=== PATIENT | female | born 2000 | race Hispanic/Latino ===

== ENCOUNTER 2024-08-03 10:13 | Inpatient (IN) | payer MEDICAID, OTHER, SELFPAY ==
[2024-07-31 13:09] LABS: Hematocrit 37.4 % (34.9-44.5); Hemoglobin 12.2 g/dL (12.0-15.5); Platelet Count 293 10x3/uL (150-450)
[2024-07-31 13:45] LABS: Syphilis Antibody Nonreactive (Nonreactive); Syphilis Antibody Index 0.12 S/CO (<1.00 Non-Reactive)
[2024-07-31 13:48] LABS: HBsAg Index 0.42 S/CO (0-0.99); HIV (1/2) Antibody/Antigen Non-Reactive (NonReactive); HIV 1/2 INDEX 0.16 S/CO (<1.00); Hep B Surf Ag Non-Reactive S/CO (NonReactive)
[2024-08-03] MEDS: Lactated Ringer's 1,000 ML IV SCH (10:50)
[2024-08-03] MEDS ORDERED: Bicitra 30 ML UDCUP PO PRN (11:12)
[2024-08-03] MEDS ORDERED: Tranexamic Acid 1,000 MG/10 ML VIAL IVP PRN (11:12)
[2024-08-03] MEDS ORDERED: Methylergonovine 0.2 MG/ML VIAL IM PRN (11:12)
[2024-08-03] MEDS ORDERED: Ondansetron PF 4 MG/2 ML Vial IVP PRN ×4 (11:12→20:51)
[2024-08-03] MEDS ORDERED: Oxytocin 30 units/NS 500 ML 500 ML IV SCH (11:12)
[2024-08-03] MEDS ORDERED: Carboprost 250 MCG/ML AMP IM PRN (11:12)
[2024-08-03] MEDS ORDERED: Misoprostol 200 MCG TAB PR PRN (11:12)
[2024-08-03] MEDS ORDERED: Promethazine HCl 25 MG/ML VIAL IM PRN ×3 (11:12→20:51)
[2024-08-03] MEDS ORDERED: hydrALAZINE 20 MG/ML VIAL SLOW IVP PRN ×2 (11:12→20:51)
[2024-08-03] MEDS ORDERED: Diphenoxylate HCl/Atropine Tablet PO PRN (11:12)
[2024-08-03 11:31] VITALS: BMI 32.5
[2024-08-03] MEDS ORDERED: Moisturizing Cream (Eucerin) 113 GM JAR TOP PRN (11:36)
[2024-08-03] MEDS ORDERED: fentaNYL 50 mcg/mL 1 mL Vial SLOW IVP PRN (11:36)
[2024-08-03] MEDS ORDERED: Naloxone HCl 0.4 mg/ml Vial IV PRN (11:36)
[2024-08-03] MEDS ORDERED: diphenhydrAMINE 50 MG/ML VIAL IVP PRN (11:36)
[2024-08-03] MEDS ORDERED: Naloxone HCl 0.4 mg/ml Vial IVP PRN ×2 (11:36)
[2024-08-03] MEDS ORDERED: Meperidine HCl/PF 25 MG (1 mL) VIAL SLOW IVP PRN (11:36)
[2024-08-03] MEDS ORDERED: Ketorolac Tromethamine 30 MG (1 mL) VIAL IVP PRN (11:36)
[2024-08-03] MEDS ORDERED: Communication Order-Pharmacy FS SCH (11:45)
[2024-08-03] MEDS: Famotidine/PF 20 mg/2ml Vial SLOW IVP PRN (11:59)
[2024-08-03] MEDS: CEFAZOLIN 2 GM in Sodium Chloride 0.9% 100 ML IVPB SCH (11:59)
[2024-08-03] MEDS: Phytonadione Neonatal 1 MG/0.5 ML AMP ONE (12:22)
[2024-08-03] MEDS: Hepatitis B Vaccine 10 MCG/0.5 ML SYR ONE (12:22)
[2024-08-03] MEDS: Erythromycin Base 0.5% Oint 1 GM TUBE ONE (12:22)
[2024-08-03] MEDS: Phenylephrine 40 MG/NS 250 ML 250 ML ONE (12:23)
[2024-08-03] MEDS: Morphine PF 10 MG/10 ML VIAL ONE (12:23)
[2024-08-03] MEDS: Ondansetron PF 4 MG/2 ML Vial ONE (12:23)
[2024-08-03] MEDS: PHENYLEPHRINE-NS 100 MCG/ML 10 ML SYRINGE ONE (12:23)
[2024-08-03] MEDS: Oxytocin 10 UNITS/ML VIAL ONE (12:23)
[2024-08-03] MEDS: ePHEDrine Sulfate 50 MG/10 ML VIAL ONE (12:23)
[2024-08-03] MEDS: Ketorolac Tromethamine 30 MG (1 mL) VIAL ONE (12:23)
[2024-08-03] MEDS ORDERED: Ketorolac Tromethamine 30 MG (1 mL) VIAL IVP SCH (18:30)
[2024-08-03] MEDS ORDERED: Lanolin Ointment 7 GM TUBE TOP PRN (20:51)
[2024-08-03] MEDS ORDERED: Bisacodyl 10 MG SUPP PR PRN (20:51)
[2024-08-03] MEDS ORDERED: diphenhydrAMINE 25 MG CAP PO PRN (20:51)
[2024-08-03] MEDS: Docusate 100 MG CAP PO SCH (21:37)
[2024-08-03] MEDS: Ketorolac Tromethamine 30 MG (1 mL) VIAL IVP SCH (21:37)
[2024-08-03] MEDS: Ferrous Sulfate 325 MG TAB PO SCH (21:38)
[2024-08-04 04:14] LABS: Hemoglobin 9.8 g/dL (12.0-15.5); Mean Corpuscular HGB CONC 32.7 g/dL (32.0-36.0); Mean Corpuscular Hemoglobin 26.5 pg (27.0-33.0); Mean Corpuscular Volume 81.1 fL (81.6-98.3); Mean Platelet Volume 10.2 fL (7.4-10.4); Platelet Count 227 10x3/uL (150-450); RBC Distribution Width 15.1 % (11.5-14.5); White Blood Cell (WBC) Count 11.4 10x3/uL (3.5-10.5)
[2024-08-04] MEDS: Boostrix 0.5 ML (Tdap) VIAL (>/=7 yrs of age) IM ONE (07:19)
[2024-08-04] MEDS: Prenatal Vitamin 1 TAB PO SCH (09:38)
[2024-08-04] MEDS: HYDROcodone/Acetaminophen 5/325 mg Tablet PO PRN (11:28)
[2024-08-04] MEDS: Ibuprofen 800 MG TAB PO SCH (14:34)
[2024-08-04] MEDS: Simethicone Chewable 80 MG TAB PO PRN (20:41)
[2024-08-06] MEDS: HYDROcodone/Acetaminophen 5/325 mg Tablet PO PRN (05:12)
[2024-08-06 08:07] VITALS: BP 118/66; TEMP 97.6
== END 2024-08-06 18:00 | disposition home or self-care (01) | DRG 788 ==
LOC: CSHLD 10:13 → CSHPP 17:01
PROVIDERS: ADMIT Family Medicine; ATTEND Family Medicine
PROC: 10D00Z1 Extraction of Products of Conception, Low, Open Approach (ICD-10-PCS; principal; 2024-08-03)
DX: O34.211 Maternal care for low transverse scar from previous cesarean delivery (principal); Z3A.39 39 weeks gestation of pregnancy; Z37.0 Single live birth; Z79.899 Other long term (current) drug therapy
CPT/HCPCS: 36415; 51702; 85014; 85018; 85027; 85049; 85461; 86780; 86850; 86870; 86900; 86901; 86905; 86922; 87340; 87389; 90384; 96372; C1889; J1885; J2274; J2405; J2590; J3490; J7120